=== PATIENT | male | born 1960 | race Caucasian/White ===

== ENCOUNTER 2017-02-20 18:07 | Inpatient (IN) | payer BC ==
[2017-02-20] MEDS ORDERED: Sodium Chloride 0.9% 10 ML Syringe FLUSH PRN (18:48)
[2017-02-20] MEDS ORDERED: HYDROmorphone 0.5 MG/0.5 ML Syringe IVPUSH ONE (18:50)
[2017-02-20] MEDS ORDERED: Sodium Chloride 0.9% 1,000 ML IV ONE ×2 (18:50→21:02)
--- NOTE | 2017-02-20 19:06 | EDM.PDOC ---
ED HPI GENERAL MEDICAL PROBLEM - General Chief Complaint: Abdominal Pain Stated Complaint: ABD PAIN Time Seen by Provider: 02/20/17 18:42 Source of Information: Reports: Patient History Limitations: Reports: No Limitations - History of Present Illness INITIAL COMMENTS - FREE TEXT/NARRATIVE: 57-year-old male presents for evaluation treatment of lower abdominal pain. Patient reports that the pain started last night. He reports the pain is located in his lower abdomen. Improves with laying flat and worsens with movement. He states that it is worse it was a 9 or 10 out of 10. He states the first was a cramping sensation. He states that it is now more constant and is worsening. Patient reports that the pain radiates from his lower abdomen into his penis. He also reports associated symptoms of fatigue, decreased appetite, dysuria, urinary urgency and decreased urinary frequency. He states he's never had anything like this before. He denies fevers, nausea, vomiting, diarrhea, hematuria, back pain, flank pain, melena, hematochezia, testicular pain, testicular swelling or penile discharge. Reports that he did have one bowel movement today. States that it was harder to pass normal. Patient was seen at [facility] today. He had labs, an abdominal x- ray and abdominal CT with IV and oral contrast on. States that his white blood cell count was elevated. Last intake was around 5 PM. No previous surgeries to his abdomen. Has been on antibiotics periodically for an ear infection. Last antibiotic use was about 4 or 5 months ago. He denies any diarrhea, foul-smelling stools or mucus in his stool. Lower Abdomen Pain Score (Numeric/FACES): 8 - Related Data Allergies Allergy/AdvReac Type Severity Reaction Status Date / Time Sulfa (Sulfonamide Allergy Rash Verified 02/20/17 18:21 Antibiotics) Home Meds: Home Meds Lutein/Minerals/Vit A,C & E [Ocuvite] 1 tab PO DAILY 02/20/17 [History] Multivitamin [Multivitamins] 1 tab PO DAILY 02/20/17 [History] cycloSPORINE [Restasis] 1 tab PO DAILY 02/20/17 [History] Past Medical History Other HEENT History: Wears glasses. - Past Surgical History Other HEENT Surgeries/Procedures: Corneal transplant. Other Musculoskeletal Surgeries/Procedures:: Meniscus repair. Social & Family History - Tobacco Use Smoking Status *Q: Former Smoker Years of Tobacco use: 26 Used Tobacco, but Quit: Yes Month Tobacco Last Used: 5 weeks - Caffeine Use Caffeine Use: Reports: Coffee - Alcohol Use Days Per Week of Alcohol Use: 3 Number of Drinks Per Day: 2 Total Drinks Per Week: 6 - Recreational Drug Use Recreational Drug Use: No ED ROS GENERAL - Review of Systems Review Of Systems: See Below Constitutional: Reports: Fatigue, Decreased Appetite. Denies: Fever GI/Abdominal: Reports: Abdominal Pain (lower abdomen). Denies: Constipation, Diarrhea, Hematochezia, Melena, Nausea, Vomiting : Denies: Discharge, Flank Pain, Hematuria ED EXAM, GI/ABD - Physical Exam Exam: See Below Exam Limited By: No Limitations General Appearance: Alert, WD/WN, No Apparent Distress Respiratory/Chest: No Respiratory Distress, Lungs Clear, Normal Breath Sounds Cardiovascular: Normal Peripheral Pulses, Regular Rate, Rhythm, No Murmur GI/Abdominal Exam: Normal Bowel Sounds, Rigid Rectal (Males) Exam: Normal Exam. No: Tenderness (unble to palpate entire prostates no tenderness to the edge of the prostate) Back Exam: Normal Inspection. No: CVA Tenderness (L), CVA Tenderness (R) Neurological: Alert, Oriented, Normal Cognition Psychiatric: Normal Affect, Normal Mood Skin Exam: Warm, Dry, Normal Color Course - Vital Signs Last Recorded V/S: Last Vital Signs Temp 36.9 C 02/20/17 18:16 Pulse 86 02/20/17 18:16 Resp 18 02/20/17 18:16 BP 130/75 02/20/17 18:16 Pulse Ox 96 02/20/17 18:16 - Orders/Labs/Meds Orders: Active Orders 24 hr Category Date Time Status Peripheral IV Care [RC] . DIRECTED Care 02/20/17 18:50 Active CULTURE URINE [RM] Stat Lab 02/20/17 21:05 Ordered Levofloxacin/Dextrose 5%-Water [Levaquin in D5W 250 MG/ Med 02/20/17 21:08 Ordered 50 ML] 250 mg Premix Bag 1 bag IV ONETIME Levofloxacin/Dextrose 5%-Water [Levaquin in D5W 500 MG/ Med 02/20/17 20:32 Active 100 ML] 500 mg Premix Bag 1 bag IV ONETIME Sodium Chloride 0.9% [Normal Saline] 1,000 ml Med 02/20/17 21:02 Ordered IV ONETIME Sodium Chloride 0.9% [Saline Flush] Med 02/20/17 18:48 Active 10 ml FLUSH ASDIRECTED PRN Peripheral IV Insertion Adult [OM.PC] Routine Oth 02/20/17 18:48 Ordered Medication Orders Levofloxacin/Dextrose 500 mg/ (Premix) 100 mls @ 100 mls/hr IV ONETIME ONE Stop: 02/20/17 21:31 Last Admin: 02/20/17 20:40 Dose: 100 mls/hr Sodium Chloride (Normal Saline) 1,000 mls @ 200 mls/hr IV ONETIME ONE Stop: 02/21/17 02:01 Last Admin: 02/20/17 21:06 Dose: 200 mls/hr Levofloxacin/Dextrose 250 mg/ (Premix) 50 mls @ 50 mls/hr IV ONETIME ONE Stop: 02/20/17 22:07 Sodium Chloride (Saline Flush) 10 ml FLUSH ASDIRECTED PRN PRN Reason: Keep Vein Open Last Admin: 02/20/17 19:14 Dose: 10 ml Labs: Laboratory Tests 02/20/17 02/20/17 02/20/17 Range/Units 19:05 19:05 19:05 WBC 23.06 H (4.23-9.07) K/mm3 RBC 4.56 L (4.63-6.08) M/mm3 Hgb 14.5 (13.7-17.5) gm/L Hct 41.8 (40.1-51.0) % MCV 91.7 (79.0-92.2) fl MCH 31.8 (25.7-32.2) pg MCHC 34.7 (32.2-35.5) g/dl RDW Std Deviation 40.6 (35.1-43.9) fL Plt Count 238 (163-337) K/mm3 MPV 10.2 (9.4-12.3) fl Neutrophils % (Manual) 80 H (40-60) % Band Neutrophils % 6 (0-10) % Lymphocytes % (Manual) 12 L (20-40) % Atypical Lymphs % 0 % Monocytes % (Manual) 2 (2-10) % Eosinophils % (Manual) 0 L (0.8-7.0) % Basophils % (Manual) 0 L (0.2-1.2) Toxic Granulation Few Platelet Estimate Adequate Plt Morphology Comment Normal RBC Morph Comment Normal Sodium 138 (136-145) mEq/L Potassium 3.9 (3.5-5.1) mEq/L Chloride 102 (98-107) mEq/L Carbon Dioxide 26 (21-32) mEq/L Anion Gap 13.9 (5-15) BUN 12 (7-18) mg/dL Creatinine 1.0 (0.7-1.3) mg/dL Est Cr Clr Drug Dosing 85.17 mL/min Estimated GFR (MDRD) > 60 (>60) mL/min BUN/Creatinine Ratio 12.0 L (14-18) Glucose 140 H (74-106) mg/dL Calcium 8.7 (8.5-10.1) mg/dL Total Bilirubin 1.6 H (0.2-1.0) mg/dL GGT 21 (15-85) U/L AST 15 (15-37) U/L ALT 33 (16-63) U/L Alkaline Phosphatase 49 (46-116) U/L C-Reactive Protein 7.4 H* (<1.0) mg/dL Total Protein 7.6 (6.4-8.2) g/dl Albumin 3.8 (3.4-5.0) g/dl Globulin 3.8 gm/dL Albumin/Globulin Ratio 1.0 (1-2) Lipase 91 (73-393) U/L Urine Color (Yellow) Urine Appearance (Clear) Urine pH (5.0-8.0) Ur Specific [place] (1.005-1.030) Urine Protein (Negative) Urine Glucose (UA) (Negative) Urine Ketones (Negative) Urine Occult Blood (Negative) Urine Nitrite (Negative) Urine Bilirubin (Negative) Urine Urobilinogen (0.2-1.0) Ur Leukocyte Esterase (Negative) Urine RBC (0-5) /hpf Urine WBC (0-5) /hpf Ur Epithelial Cells (0-5) /hpf Urine Bacteria (FEW) /hpf Urine Mucus (FEW) /hpf 02/20/17 Range/Units 19:05 WBC (4.23-9.07) K/mm3 RBC (4.63-6.08) M/mm3 Hgb (13.7-17.5) gm/L Hct (40.1-51.0) % MCV (79.0-92.2) fl MCH (25.7-32.2) pg MCHC (32.2-35.5) g/dl RDW Std Deviation (35.1-43.9) fL Plt Count (163-337) K/mm3 MPV (9.4-12.3) fl Neutrophils % (Manual) (40-60) % Band Neutrophils % (0-10) % Lymphocytes % (Manual) (20-40) % Atypical Lymphs % % Monocytes % (Manual) (2-10) % Eosinophils % (Manual) (0.8-7.0) % Basophils % (Manual) (0.2-1.2) Toxic Granulation Platelet Estimate Plt Morphology Comment RBC Morph Comment Sodium (136-145) mEq/L Potassium (3.5-5.1) mEq/L Chloride (98-107) mEq/L Carbon Dioxide (21-32) mEq/L Anion Gap (5-15) BUN (7-18) mg/dL Creatinine (0.7-1.3) mg/dL Est Cr Clr Drug Dosing mL/min Estimated GFR (MDRD) (>60) mL/min BUN/Creatinine Ratio (14-18) Glucose (74-106) mg/dL Calcium (8.5-10.1) mg/dL Total Bilirubin (0.2-1.0) mg/dL GGT (15-85) U/L AST (15-37) U/L ALT (16-63) U/L Alkaline Phosphatase (46-116) U/L C-Reactive Protein (<1.0) mg/dL Total Protein (6.4-8.2) g/dl Albumin (3.4-5.0) g/dl Globulin gm/dL Albumin/Globulin Ratio (1-2) Lipase (73-393) U/L Urine Color Light yellow (Yellow) Urine Appearance Clear (Clear) Urine pH 6.0 (5.0-8.0) Ur Specific [place] 1.010 (1.005-1.030) Urine Protein Negative (Negative) Urine Glucose (UA) Negative (Negative) Urine Ketones Negative (Negative) Urine Occult Blood 1+ H (Negative) Urine Nitrite Negative (Negative) Urine Bilirubin Negative (Negative) Urine Urobilinogen 0.2 (0.2-1.0) Ur Leukocyte Esterase Negative (Negative) Urine RBC 0-5 (0-5) /hpf Urine WBC 0-5 (0-5) /hpf Ur Epithelial Cells 0-5 (0-5) /hpf Urine Bacteria Not seen (FEW) /hpf Urine Mucus Not seen (FEW) /hpf Meds: Medications Generic Name Dose Route Start Last Admin Trade Name Getq PRN Reason Stop Dose Admin Levofloxacin/Dextrose 500 mg/ 100 mls @ 100 mls/hr 02/20/17 20:32 02/20/17 20 :40 Premix IV 02/20/17 21:31 100 mls/hr ONETIME ONE Administration Sodium Chloride 1,000 mls @ 200 mls/hr 02/20/17 21:02 02/20/17 21:06 Normal Saline IV 02/21/17 02:01 200 mls/hr ONETIME ONE Administration Levofloxacin/Dextrose 250 mg/ 50 mls @ 50 mls/hr 02/20/17 21:08 Premix IV 02/20/17 22:07 ONETIME ONE Sodium Chloride 10 ml 02/20/17 18:48 02/20/17 19:14 Saline Flush FLUSH 10 ml ASDIRECTED PRN Administration Keep Vein Open Discontinued Medications Generic Name Dose Route Start Last Admin Trade Name Getq PRN Reason Stop Dose Admin Hydromorphone HCl 0.5 mg 02/20/17 18:50 02/20/17 19:14 Dilaudid IVPUSH 02/20/17 18:51 0.5 mg ONETIME ONE Administration Sodium Chloride 1,000 mls @ 999 mls/hr 02/20/17 18:50 02/20/17 19:14 Normal Saline IV 02/20/17 19:50 999 mls/hr ONETIME ONE Administration Ketorolac Tromethamine 30 mg 02/20/17 21:08 02/20/17 21:13 Toradol IVPUSH 02/20/17 21:09 30 mg ONETIME ONE Administration - Re-Assessments/Exams Free Text/Narrative Re-Assessment/Exam: 02/20/17 20:30 Labs obtained from [facility] include the following: UA is negative for leukocytes, nitrites, protein, blood, glucose, ketones and bilirubin. White blood cell count is 19.2, hemoglobin 14.2, hematocrit 41.7 and platelets 227. Sodium is 136, potassium 3.7, chloride 100. Anion gap 13. Glucose 109. Creatinine 0.8, B1 14. AST 21, ALT 31 and alkaline phosphatase 47. Total bilirubin 1.1. CT of the abdomen and pelvis with contrast impression per radiologist at [facility] 8mm nodule right lung base. PET scan could be helpful. Benign cysts in the liver. Study otherwise appears to be negative. Specifically noted a normal appendix. Pancreas appears normal. Kidneys enhance normally. No signs of bowel obstruction. One view abdominal x-ray shows a nonspecific nonobstructive gas bowel pattern mild ileus could not have a similar appearance. No pathologic calcifications. Study otherwise appears to be negative. 02/20/17 20:52 Labs returned White blood cell count 23.06 with 6% bands, hemoglobin 14.5 and platelets are 238. Sodium 138, potassium 3.9 chloride 102. Anion gap 13.9. Glucose 140. Total bilirubin 1.6. AST 15, ALT 33 and GGT 21. Lipase is 91. CRP is 7.4. UA has 1+ blood. Negative nitrites and leuks. Spoke with Dr. Jona Aguirre. Recommended rectal exam to rule out prostatitis. Rectal exam performed. I was unable to palpate the entire prostates but I was able to feel edge. He was not tender with palpation. Spoke with Dr. Rodriguez. She will admit for observation for IV antibiotics and pain medication. Will treat for prostatitis. 02/20/17 21:16 Dr. Jona Aguirre has come and seen the patient. Does not feel he has an acute abdomen. Departure - Departure Time of Disposition: 21:31 Disposition: Refer to Observation Condition: Fair Clinical Impression: Prostatitis - Discharge Information Forms: ED Department Discharge Additional Instructions: Plan admit to observation under Dr. Rodriguez for prostatitis. - My Orders Last 24 Hours: My Active Orders 02/20/17 18:48 Sodium Chloride 0.9% [Saline Flush] 10 ml FLUSH ASDIRECTED PRN Peripheral IV Insertion Adult [OM.PC] Routine 02/20/17 18:50 Peripheral IV Care [RC] . DIRECTED 02/20/17 20:32 Levofloxacin/Dextrose 5%-Water [Levaquin in D5W 500 MG/100 ML] 500 mg Premix Bag 1 bag IV ONETIME 02/20/17 21:02 Sodium Chloride 0.9% [Normal Saline] 1,000 ml IV ONETIME 02/20/17 21:05 CULTURE URINE [RM] Stat 02/20/17 21:08 Levofloxacin/Dextrose 5%-Water [Levaquin in D5W 250 MG/50 ML] 250 mg Premix Bag 1 bag IV ONETIME - Assessment/Plan Last 24 Hours: My Active Orders 02/20/17 18:48 Sodium Chloride 0.9% [Saline Flush] 10 ml FLUSH ASDIRECTED PRN Peripheral IV Insertion Adult [OM.PC] Routine 02/20/17 18:50 Peripheral IV Care [RC] . DIRECTED 02/20/17 20:32 Levofloxacin/Dextrose 5%-Water [Levaquin in D5W 500 MG/100 ML] 500 mg Premix Bag 1 bag IV ONETIME 02/20/17 21:02 Sodium Chloride 0.9% [Normal Saline] 1,000 ml IV ONETIME 02/20/17 21:05 CULTURE URINE [RM] Stat 02/20/17 21:08 Levofloxacin/Dextrose 5%-Water [Levaquin in D5W 250 MG/50 ML] 250 mg Premix Bag 1 bag IV ONETIME
[2017-02-20] MEDS ORDERED: Levofloxacin/Dextrose 5%-Water 500 MG in Premix Bag 1 BAG IV ONE (20:32)
[2017-02-20] MEDS ORDERED: Ketorolac 30 MG/ML SDV IVPUSH ONE (21:08)
[2017-02-20] MEDS ORDERED: Levofloxacin/Dextrose 5%-Water 250 MG in Premix Bag 1 BAG IV ONE (21:08)
[2017-02-20] MEDS ORDERED: Acetaminophen 325 MG Tab PO PRN (22:16)
[2017-02-21] MEDS ORDERED: Ketorolac 30 MG/ML SDV IVPUSH SCH (03:00)
[2017-02-21] MEDS: Ketorolac 30 MG/ML SDV IVPUSH SCH ×4 (03:11→21:39)
--- NOTE | 2017-02-21 08:53 | PCM.HP ---
H&P History of Present Illness - General Date of Service: 02/20/17 Admit Problem/Dx: Admission Diagnosis/Problem Admission Diagnosis/Problem Prostatitis Source of Information: Patient, Family, Provider History Limitations: Reports: No Limitations - History of Present Illness Initial Comments - Free Text/Narative: 57 year old male who has not been seen by a healthcare provider until the day of admission reports abdominal pain. This apparently has severely restricted his activities. He has had pain in the abdomen which on occasion has radiated into his genitalia. He was seen by a Primary Care provider and given a prescription for BPH/Prostatitis. Failed OP therapy because of the severity of his abdominal pain, he will be admitted to observation. CT of the abdomen and pelvis does not suggest a acute/chronic process that would explain the current complainant. He has received Levoquin in the ED, and also Toradol. Onset of Symptoms: Reports: Sudden Symptom Onset Date: 02/20/17 Duration of Symptoms: Reports: Hour(s):, Getting Worse, Waxing/Waning Location: Reports: Abdomen Quality: Reports: Sharp Severity: Moderate Improves with: Reports: Medication Worsens with: Reports: Movement Associated Symptoms: Reports: No Other Symptoms Lower Abdomen Pain Score (Numeric/FACES): 8 - Related Data Allergies/Adverse Reactions: Allergies Allergy/AdvReac Type Severity Reaction Status Date / Time Sulfa (Sulfonamide Allergy Rash Verified 02/20/17 18:21 Antibiotics) Home Medications: Home Meds Lutein/Minerals/Vit A,C & E [Ocuvite] 1 tab PO DAILY 02/20/17 [History] Multivitamin [Multivitamins] 1 tab PO DAILY 02/20/17 [History] cycloSPORINE [Restasis] 1 tab PO DAILY 02/20/17 [History] Past Medical History HEENT History: Reports: Impaired Vision, Other (See Below) Other HEENT History: Wears glasses and/or contacts. has bilateral corneal implants. Genitourinary History: Reports: Other (See Below) Other Genitourinary History: currently admitted 02/20/17 for prostatitis - Past Surgical History Head Surgeries/Procedures: Reports: None HEENT Surgical History: Reports: Other (See Below) Other HEENT Surgeries/Procedures: Corneal transplant. Musculoskeletal Surgical History: Reports: Other (See Below) Other Musculoskeletal Surgeries/Procedures:: Meniscus repair on right. Oncologic Surgical History: Reports: None Social & Family History - Family History Family Medical History: Noncontributory - Tobacco Use Smoking Status *Q: Former Smoker Years of Tobacco use: 29 Packs/Tins Daily: 1 Used Tobacco, but Quit: Yes Month Tobacco Last Used: january 2017 Second Hand Smoke Exposure: No - Caffeine Use Caffeine Use: Reports: Coffee Other Caffeine Use: one pot every day - Alcohol Use Days Per Week of Alcohol Use: 4 Number of Drinks Per Day: 5 Total Drinks Per Week: 20 Date of Last Drink: 02/18/17 - Recreational Drug Use Recreational Drug Use: No H&P Review of Systems - Review of Systems: Review Of Systems: See Below General: Reports: Weakness, Decreased Appetite HEENT: Reports: No Symptoms Pulmonary: Reports: No Symptoms Cardiovascular: Reports: No Symptoms Gastrointestinal: Reports: Abdominal Pain, Decreased Appetite, Flatus Genitourinary: Reports: No Symptoms Musculoskeletal: Reports: No Symptoms Skin: Reports: No Symptoms Psychiatric: Reports: No Symptoms Neurological: Reports: No Symptoms Hematologic/Lymphatic: Reports: No Symptoms Immunologic: Reports: No Symptoms Exam - Exam Exam: See Below - Vital Signs Vital Signs: Last Vital Signs Temp 36.9 C 02/21/17 08:09 Pulse 73 02/21/17 08:09 Resp 12 02/21/17 08:09 BP 124/67 02/21/17 08:09 Pulse Ox 95 02/21/17 08:09 Weight: 76.657 kg - Exam Quality Assessment: DVT Prophylaxis General: Alert, Oriented, Mild Distress HEENT: Conjunctiva Clear, EACs Clear, EOMI, Hearing Intact, Nares Patent, Normal Nasal Septum, Pupils Equal, Pupils Reactive Neck: Supple, Trachea Midline Lungs: Normal Respiratory Effort Cardiovascular: Regular Rate, Regular Rhythm GI/Abdominal Exam: Normal Bowel Sounds, Soft, No Organomegaly, No Distention, No Abnormal Bruit, No Mass, Guarding (no), Rigid (no), Rebound (no), Other ( firm abdominal muscle) (Male) Exam: Deferred, Other (prostate exam performed in the ED) Rectal (Males) Exam: Deferred Back Exam: Normal Inspection Extremities: Normal Inspection, No Pedal Edema Skin: Warm Neurological: Cranial Nerves Intact, Normal Speech Neuro Extensive - Mental Status: Alert, Oriented x3, Normal Mood/Affect, Normal Cognition, Memory Intact - Patient Data Result Diagrams: 02/20/17 19:05 02/20/17 19:05 *Q Meaningful Use (ADM) - VTE *Q VTE Criteria *Q: - Stroke *Q Stroke Criteria *Q: - AMI *Q AMI Criteria *Q: - Problem List (1) Benign prostatic hyperplasia SNOMED Code(s): 139462804, 108074802 ICD Code: N40.0 - BENIGN PROSTATIC HYPERPLASIA WITHOUT LOWER URINRY TRACT SYMP Status: Acute Current Visit: Yes (2) Prostatitis SNOMED Code(s): 4496590 ICD Code: N41.9 - INFLAMMATORY DISEASE OF PROSTATE, UNSPECIFIED Status: Acute Current Visit: Yes Problem List Initiated/Reviewed/Updated: Yes Orders Last 24hrs: Active Orders 24 hr Category Date Time Status Admission Status [Patient Status] [ADT] Routine ADT 02/20/17 22:00 Active Up ad [place] [RC] Care 02/20/17 22:11 Active Heart Healthy Diet [DIET] Diet 02/21/17 Breakfast Active Acetaminophen [Tylenol] Med 02/20/17 22:16 Active 650 mg PO Q4H PRN Ketorolac [Toradol] Med 02/21/17 03:00 Active 30 mg IVPUSH Q6H cycloSPORINE Med 02/21/17 09:00 Ordered 1 tab PO DAILY Code Status [Resuscitation Status] Routine Resus Stat 02/20/17 22:10 Ordered Medication Orders Acetaminophen (Tylenol) 650 mg PO Q4H PRN PRN Reason: fever/pain Ketorolac Tromethamine (Toradol) 30 mg IVPUSH Q6H JENS Stop: 02/22/17 09:01 Last Admin: 02/21/17 03:11 Dose: 30 mg Non-Formulary Medication (Cyclosporine) 1 tab PO DAILY JENS Sodium Chloride (Saline Flush) 10 ml FLUSH ASDIRECTED PRN PRN Reason: Keep Vein Open Last Admin: 02/20/17 19:14 Dose: 10 ml Assessment/Plan Comment:: Impression: Abdominal pain, unspecified BPH Prostatitis Plan: Obs admission IVF Clear Liquids, advance as tolerated IV Levoquin Muscle relaxer IV NSAIDS DVT/GI prophylaxis
[2017-02-21] MEDS ORDERED: Enoxaparin 40 MG/0.4 ML Syringe SUBCUT ONE (08:59)
[2017-02-21] MEDS ORDERED: CYCLOSPORINE PO SCH (09:00)
[2017-02-21] MEDS ORDERED: Lactated Ringers 1,000 ML IV SCH ×2 (09:00→11:00)
[2017-02-21] MEDS: Levofloxacin/Dextrose 5%-Water 750 MG in Premix Bag 1 BAG IV SCH (09:41)
[2017-02-21] MEDS: Tamsulosin 0.4 MG Cap.ER PO SCH ×2 (09:49→18:35)
--- NOTE | 2017-02-21 13:37 | PCM.PN ---
- General Info Date of Service: 02/21/17 Subjective Update: Feeling better wants to try to advance diet, less tenderness. Notes flatus, feels like he has to have a bowel movement. Functional Status: Reports: Pain Controlled (improved), Tolerating Diet (clear liquids), Ambulating, Urinating - Review of Systems General: Reports: No Symptoms HEENT: Reports: No Symptoms Pulmonary: Reports: No Symptoms Cardiovascular: Reports: No Symptoms Gastrointestinal: Reports: Abdominal Pain (decreased) Genitourinary: Reports: No Symptoms Musculoskeletal: Reports: No Symptoms Skin: Reports: No Symptoms Neurological: Reports: No Symptoms - Patient Data Vitals - most recent: Last Vital Signs Temp 36.9 C 02/21/17 08:09 Pulse 76 02/21/17 13:03 Resp 12 02/21/17 13:03 BP 118/66 02/21/17 13:03 Pulse Ox 97 02/21/17 13:03 Weight - most recent: 76.657 kg I&O - last 24 hours: Intake & Output 02/20/17 02/21/17 02/21/17 22:59 06:59 14:59 Intake Total 2500 240 Output Total 1100 Balance 1400 240 Med Orders - Current: Current Medications Acetaminophen (Tylenol) 650 mg PO Q4H PRN PRN Reason: fever/pain Cyclobenzaprine HCl (Flexeril) 10 mg PO TID [facility] Levofloxacin/Dextrose 750 mg/ (Premix) 150 mls @ 100 mls/hr IV Q24H [facility] Last Admin: 02/21/17 09:41 Dose: 100 mls/hr Lactated Ringer's (Ringers, Lactated) 1,000 mls @ 200 mls/hr IV ASDIRECTED [facility] Stop: 02/21/17 17:00 Ketorolac Tromethamine (Toradol) 30 mg IVPUSH Q6H [facility] Stop: 02/22/17 09:01 Last Admin: 02/21/17 09:49 Dose: 30 mg Non-Formulary Medication (Cyclosporine) 1 tab PO DAILY [facility] Tamsulosin HCl (Flomax) 0.4 mg PO BIDPC [facility] Last Admin: 02/21/17 09:49 Dose: 0.4 mg Discontinued Medications Enoxaparin Sodium (Lovenox) 40 mg SUBCUT DAILY ONE Stop: 02/21/17 09:00 Last Admin: 02/21/17 09:47 Dose: 40 mg Hydromorphone HCl (Dilaudid) 0.5 mg IVPUSH ONETIME ONE Stop: 02/20/17 18:51 Last Admin: 02/20/17 19:14 Dose: 0.5 mg Sodium Chloride (Normal Saline) 1,000 mls @ 999 mls/hr IV ONETIME ONE Stop: 02/20/17 19:50 Last Admin: 02/20/17 19:14 Dose: 999 mls/hr Levofloxacin/Dextrose 500 mg/ (Premix) 100 mls @ 100 mls/hr IV ONETIME ONE Stop: 02/20/17 21:31 Last Admin: 02/20/17 20:40 Dose: 100 mls/hr Sodium Chloride (Normal Saline) 1,000 mls @ 200 mls/hr IV ONETIME ONE Stop: 02/21/17 02:01 Last Admin: 02/20/17 21:06 Dose: 200 mls/hr Levofloxacin/Dextrose 250 mg/ (Premix) 50 mls @ 50 mls/hr IV ONETIME ONE Stop: 02/20/17 22:07 Last Admin: 02/20/17 21:38 Dose: 50 mls/hr Lactated Ringer's (Ringers, Lactated) 1,000 mls @ 999 mls/hr IV ASDIRECTED [facility] Stop: 02/21/17 11:00 Ketorolac Tromethamine (Toradol) 30 mg IVPUSH ONETIME ONE Stop: 02/20/17 21:09 Last Admin: 02/20/17 21:13 Dose: 30 mg Ketorolac Tromethamine (Toradol) 30 mg IVPUSH Q6H [facility] Stop: 02/24/17 03:01 Sodium Chloride (Saline Flush) 10 ml FLUSH ASDIRECTED PRN PRN Reason: Keep Vein Open Last Admin: 02/20/17 19:14 Dose: 10 ml - Exam Quality Assessment: DVT prophylaxis General: alert, oriented, cooperative, no acute distress HEENT: Pupils equal, Pupils reactive, EOMI, Mucous membr. moist/pink Neck: supple, trachea midline, no JVD Lungs: Normal Respiratory Effort Cardiovascular: Regular Rate, Regular Rhythm GI/Abdominal Exam: Normal Bowel Sounds, Soft, Non-Tender (minimal tenderness), No Organomegaly, No Distention (Male) Exam: Deferred Back Exam: Normal Inspection Extremities: Normal Inspection, No Pedal Edema Skin: warm Neurological: no new focal deficit, normal gait, normal speech Psy/Mental Status: alert, normal affect, normal mood - Problem List & Annotations (1) Benign prostatic hyperplasia SNOMED Code(s): 777628472, 516945925 Code(s): N40.0 - BENIGN PROSTATIC HYPERPLASIA WITHOUT LOWER URINRY TRACT SYMP Status: Acute Current Visit: Yes (2) Prostatitis SNOMED Code(s): 3284588 Code(s): N41.9 - INFLAMMATORY DISEASE OF PROSTATE, UNSPECIFIED Status: Acute Current Visit: Yes (3) Abdominal pain SNOMED Code(s): 54851290 Code(s): R10.9 - UNSPECIFIED ABDOMINAL PAIN Status: Acute Current Visit: Yes Qualifiers: Abdominal location: lower abdomen, unspecified Qualified Code(s): R10.30 - Lower abdominal pain, unspecified - Problem List Review Problem List Initiated/Reviewed/Updated: Yes - My Orders Last 24 Hours: My Active Orders 02/20/17 22:10 Code Status [Resuscitation Status] Routine 02/20/17 22:11 Up ad [place] [RC] 02/20/17 22:16 Acetaminophen [Tylenol] 650 mg PO Q4H PRN 02/21/17 03:00 Ketorolac [Toradol] 30 mg IVPUSH Q6H 02/21/17 08:54 Antiembolic Devices [RC] PER UNIT ROUTINE [facility] Hose [Antiembolic Hose] [OM.PC] Routine 02/21/17 08:58 CIWAA Assessment [RC] ASDIRECTED 02/21/17 09:00 Levofloxacin/Dextrose 5%-Water [Levaquin in D5W 750 MG/150 ML] 750 mg Premix Bag 1 bag IV Q24H Tamsulosin [Flomax] 0.4 mg PO BIDPC cycloSPORINE 1 tab PO DAILY 02/21/17 11:00 Lactated Ringers [Ringers, Lactated] 1,000 ml IV ASDIRECTED 02/21/17 14:00 BMP [BASIC METABOLIC PANEL,BMP] [CHEM] Routine CBC WITH AUTO DIFF [HEME] Routine CRP [C-REACTIVE PROTEIN] [CHEM] Routine LACTIC ACID [CHEM] Routine MAGNESIUM [CHEM] Routine 02/21/17 15:00 Cyclobenzaprine [Flexeril] 10 mg PO TID 02/21/17 Breakfast Heart Healthy Diet [DIET] - Plan Plan:: Impression: Abdominal pain, unspecified BPH, responding well to Flomax Query Prostatitis Leukocytosis Plan: IVF Clear Liquids, advance as tolerated IV Levoquin Muscle relaxer General surg consult as needed IV NSAIDS DVT/GI prophylaxis
[2017-02-21] MEDS ORDERED: Temazepam 7.5 MG Cap PO PRN (14:51)
[2017-02-21] MEDS: Cyclobenzaprine 10 MG Tab PO SCH ×2 (15:43→21:39)
[2017-02-21] MEDS: RESTASIS 0.05% EYEBOTH SCH (21:31)
[2017-02-21] MEDS: EYE EYEBOTH SCH (21:31)
[2017-02-22] MEDS: Ketorolac 30 MG/ML SDV IVPUSH SCH ×2 (04:51→12:32)
[2017-02-22] MEDS: Tamsulosin 0.4 MG Cap.ER PO SCH (08:20)
[2017-02-22] MEDS: Levofloxacin/Dextrose 5%-Water 750 MG in Premix Bag 1 BAG IV SCH (08:21)
[2017-02-22] MEDS: RESTASIS 0.05% EYEBOTH SCH (08:21)
[2017-02-22] MEDS: EYE EYEBOTH SCH (08:21)
[2017-02-22] MEDS ORDERED: Magnesium Sulfate/Water 2 GM in Premix Bag 1 BAG IV ONE (08:49)
[2017-02-22] MEDS: Cyclobenzaprine 10 MG Tab PO SCH ×2 (12:32→14:43)
[2017-02-22 12:37] VITALS: BP 130/72
[2017-02-22] MEDS ORDERED: metroNIDAZOLE/Normal Saline 500 MG in Premix Bag 1 BAG IV SCH (13:30)
[2017-02-22] MEDS ORDERED: Sodium Chloride 0.45% 1,000 ML IV SCH (13:30)
[2017-02-22] MEDS ORDERED: Ketorolac 30 MG/ML SDV IVPUSH PRN (15:28)
[2017-02-22] MEDS: Piperacillin/Tazobactam 4.5 GM in Sodium Chloride 0.9% 100 ML IV ONE ×2 (15:38→18:30)
[2017-02-22] MEDS ORDERED: Piperacillin/Tazobactam 4.5 GM in Sodium Chloride 0.9% 100 ML IV ONE (16:00)
[2017-02-22] MEDS ORDERED: Diatrizoate Meglumine/Diatrizoate Sodium 37% 120 ML Bottle PO ONE (16:12)
[2017-02-22] MEDS ORDERED: Sodium Chloride 0.9% 10 ML Syringe FLUSH ONE (16:12)
[2017-02-22] MEDS ORDERED: Iopamidol 612 MG/ML 150 ML Bottle IVPUSH ONE (16:12)
[2017-02-22] MEDS ORDERED: Benzocaine 20% Oral Spray 59.2 ML Canister MUCMEM ONE (17:54)
--- NOTE | 2017-02-22 18:30 | PCM.CONSN ---
- General Info Date of Service: 02/22/17 - Patient Data Vitals - most recent: Last Vital Signs Temp 101.5 F H 02/22/17 12:33 Pulse 92 02/22/17 12:33 Resp 14 02/22/17 12:33 BP 130/72 02/22/17 12:33 Pulse Ox 94 L 02/22/17 12:33 Weight - most recent: 76.884 kg I&O - last 24 hours: Intake & Output 02/22/17 02/22/17 02/22/17 07:59 15:59 23:59 Intake Total 1723 Output Total 2200 Balance -477 Lab Results last 24 hrs: Laboratory Results - last 24 hr 02/22/17 02/22/17 Range/Units 13:10 17:12 Lactic Acid 0.5 (0.4-2.0) mmol/L Urine Color Yellow (Yellow) Urine Appearance Clear (Clear) Urine pH 6.0 (5.0-8.0) Ur Specific [place] 1.025 (1.005-1.030) Urine Protein Negative (Negative) Urine Glucose (UA) Negative (Negative) Urine Ketones Negative (Negative) Urine Occult Blood 1+ H (Negative) Urine Nitrite Negative (Negative) Urine Bilirubin Negative (Negative) Urine Urobilinogen 0.2 (0.2-1.0) Ur Leukocyte Esterase Negative (Negative) Urine RBC Not seen (0-5) /hpf Urine WBC 0-5 (0-5) /hpf Ur Epithelial Cells 0-5 (0-5) /hpf Urine Bacteria Not seen (FEW) /hpf Urine Mucus Not seen (FEW) /hpf Med Orders - Current: Current Medications Acetaminophen (Tylenol) 650 mg PO Q4H PRN PRN Reason: fever/pain Cyclobenzaprine HCl (Flexeril) 10 mg PO TID [facility] Last Admin: 02/22/17 14:43 Dose: 10 mg Levofloxacin/Dextrose 750 mg/ (Premix) 150 mls @ 100 mls/hr IV Q24H [facility] Last Admin: 02/22/17 08:21 Dose: 100 mls/hr Metronidazole 500 mg/ Premix 100 mls @ 100 mls/hr IV Q8H [facility] Last Admin: 02/22/17 13:45 Dose: 100 mls/hr Sodium Chloride (Sodium Chloride 0.45%) 1,000 mls @ 75 mls/hr IV ASDIRECTED [facility] Last Admin: 02/22/17 13:46 Dose: 75 mls/hr Piperacillin Sod/Tazobactam (Sod 4.5 gm/ Sodium Chloride) 100 mls @ 33.333 mls/ hr IV Q8H [facility] Ketorolac Tromethamine (Toradol) 30 mg IVPUSH Q6H PRN PRN Reason: Pain Last Admin: 02/22/17 15:41 Dose: 30 mg Restasis 0.05% Eye (DropsOwn Med) 0 each EYEBOTH BID [facility] Last Admin: 02/22/17 08:21 Dose: 1 each [facility] Last Admin: 02/22/17 08:20 Dose: 0.4 mg Temazepam (Restoril) 7.5 mg PO BEDTIME PRN PRN Reason: Insomnia Discontinued Medications Benzocaine (Hurricaine 20% [place]) 1 ml MUCMEM ONETIME ONE Stop: 02/22/17 17:55 Last Admin: 02/22/17 18:08 Dose: 1 dose Diatrizoate Meglum/Diatrizoate Sod (Gastrografin 37%) 90 ml PO ONETIME ONE Stop: 02/22/17 16:13 Last Admin: 02/22/17 16:36 Dose: 90 ml Enoxaparin Sodium (Lovenox) 40 mg SUBCUT DAILY ONE Stop: 02/21/17 09:00 Last Admin: 02/21/17 09:47 Dose: 40 mg Hydromorphone HCl (Dilaudid) 0.5 mg IVPUSH ONETIME ONE Stop: 02/20/17 18:51 Last Admin: 02/20/17 19:14 Dose: 0.5 mg Sodium Chloride (Normal Saline) 1,000 mls @ 999 mls/hr IV ONETIME ONE Stop: 02/20/17 19:50 Last Admin: 02/20/17 19:14 Dose: 999 mls/hr Levofloxacin/Dextrose 500 mg/ (Premix) 100 mls @ 100 mls/hr IV ONETIME ONE Stop: 02/20/17 21:31 Last Admin: 02/20/17 20:40 Dose: 100 mls/hr Sodium Chloride (Normal Saline) 1,000 mls @ 200 mls/hr IV ONETIME ONE Stop: 02/21/17 02:01 Last Admin: 02/20/17 21:06 Dose: 200 mls/hr Levofloxacin/Dextrose 250 mg/ (Premix) 50 mls @ 50 mls/hr IV ONETIME ONE Stop: 02/20/17 22:07 Last Admin: 02/20/17 21:38 Dose: 50 mls/hr Lactated Ringer's (Ringers, Lactated) 1,000 mls @ 999 mls/hr IV ASDIRECTED [facility] Stop: 02/21/17 11:00 Lactated Ringer's (Ringers, Lactated) 1,000 mls @ 200 mls/hr IV ASDIRECTED [facility] Stop: 02/21/17 17:00 Magnesium Sulfate 2 gm/ Premix 50 mls @ 25 mls/hr IV ONETIME ONE Stop: 02/22/17 10:48 Last Admin: 02/22/17 11:11 Dose: 25 mls/hr Piperacillin Sod/Tazobactam (Sod 4.5 gm/ Sodium Chloride) 100 mls @ 33.333 mls/ hr IV Q6H [facility] Piperacillin Sod/Tazobactam (Sod 4.5 gm/ Sodium Chloride) 100 mls @ 200 mls/hr IV ONETIME ONE Stop: 02/22/17 14:29 Piperacillin Sod/Tazobactam (Sod 4.5 gm/ Sodium Chloride) 100 mls @ 200 mls/hr IV ONETIME ONE Stop: 02/22/17 16:29 Last Admin: 02/22/17 15:38 Dose: 200 mls/hr Iopamidol (Isovue-300 (61%)) 125 ml IVPUSH ONETIME ONE Stop: 02/22/17 16:13 Last Admin: 02/22/17 16:36 Dose: 125 ml Ketorolac Tromethamine (Toradol) 30 mg IVPUSH ONETIME ONE Stop: 02/20/17 21:09 Last Admin: 02/20/17 21:13 Dose: 30 mg Ketorolac Tromethamine (Toradol) 30 mg IVPUSH Q6H [facility] Stop: 02/24/17 03:01 Ketorolac Tromethamine (Toradol) 30 mg IVPUSH Q6H [facility] Stop: 02/22/17 09:01 Last Admin: 02/22/17 12:32 Dose: Not Given Non-Formulary Medication (Cyclosporine) 1 tab PO DAILY [facility] Last Admin: 02/22/17 03:25 Dose: Not Given Sodium Chloride (Saline Flush) 10 ml FLUSH ASDIRECTED PRN PRN Reason: Keep Vein Open Last Admin: 02/20/17 19:14 Dose: 10 ml Sodium Chloride (Saline Flush) 10 ml FLUSH ONETIME ONE Stop: 02/22/17 16:13 Last Admin: 02/22/17 16:36 Dose: 10 ml Consult PN Assessment/Plan Procedures: Procedures CULTR BACTERIA EXCEPT BLOOD (04/01/16) EMERGENCY DEPT VISIT (12/22/14) IMMUNIZATION ADMIN (12/22/14) RPR S/N/AX/GEN/TRK7.6-12.5CM (12/22/14) SMEAR GRAM STAIN (04/01/16) TDAP VACCINE 7 YRS/> IM (12/22/14) Problem List Initiated/Reviewed/Updated: Yes My Orders last 24 hours: surgical consutl dictated MEGHANN
--- NOTE | 2017-02-22 18:50 | PCM.PN ---
- General Info Date of Service: 02/22/17 Subjective Update: Feels better but has less of an appetite this morning. Denies N/V; passing urine without difficulty. States that his normal stool habits includes very soft stool, five times before 1000 am. Decreased pain is noted by patient , feels like he can move around more easily without discomfort. Functional Status: Reports: Pain Controlled (change anlagesics to prn), Tolerating Diet (decreased intake ), Ambulating, Urinating - Review of Systems General: Reports: No Symptoms HEENT: Reports: No Symptoms Pulmonary: Reports: No Symptoms Cardiovascular: Reports: No Symptoms Gastrointestinal: Reports: Abdominal Pain (decreased), Other (passed stool twice today) Genitourinary: Reports: No Symptoms Musculoskeletal: Reports: No Symptoms Skin: Reports: No Symptoms Neurological: Reports: No Symptoms Psychiatric: Reports: No Symptoms - Patient Data Vitals - most recent: Last Vital Signs Temp 38.6 C H 02/22/17 12:33 Pulse 92 02/22/17 12:33 Resp 14 02/22/17 12:33 BP 130/72 02/22/17 12:33 Pulse Ox 94 L 02/22/17 12:33 Weight - most recent: 76.657 kg I&O - last 24 hours: Intake & Output 02/22/17 02/22/17 02/22/17 06:59 14:59 22:59 Intake Total 1723 Output Total 2200 Balance -477 Lab Results last 24 hrs: Laboratory Results - last 24 hr 02/22/17 02/22/17 Range/Units 13:10 17:12 Lactic Acid 0.5 (0.4-2.0) mmol/L Urine Color Yellow (Yellow) Urine Appearance Clear (Clear) Urine pH 6.0 (5.0-8.0) Ur Specific [place] 1.025 (1.005-1.030) Urine Protein Negative (Negative) Urine Glucose (UA) Negative (Negative) Urine Ketones Negative (Negative) Urine Occult Blood 1+ H (Negative) Urine Nitrite Negative (Negative) Urine Bilirubin Negative (Negative) Urine Urobilinogen 0.2 (0.2-1.0) Ur Leukocyte Esterase Negative (Negative) Urine RBC Not seen (0-5) /hpf Urine WBC 0-5 (0-5) /hpf Ur Epithelial Cells 0-5 (0-5) /hpf Urine Bacteria Not seen (FEW) /hpf Urine Mucus Not seen (FEW) /hpf Med Orders - Current: Current Medications Acetaminophen (Tylenol) 650 mg PO Q4H PRN PRN Reason: fever/pain Cyclobenzaprine HCl (Flexeril) 10 mg PO TID [facility] Last Admin: 02/22/17 14:43 Dose: 10 mg Levofloxacin/Dextrose 750 mg/ (Premix) 150 mls @ 100 mls/hr IV Q24H [facility] Last Admin: 02/22/17 08:21 Dose: 100 mls/hr Metronidazole 500 mg/ Premix 100 mls @ 100 mls/hr IV Q8H [facility] Last Admin: 02/22/17 13:45 Dose: 100 mls/hr Sodium Chloride (Sodium Chloride 0.45%) 1,000 mls @ 75 mls/hr IV ASDIRECTED [facility] Last Admin: 02/22/17 13:46 Dose: 75 mls/hr Piperacillin Sod/Tazobactam (Sod 4.5 gm/ Sodium Chloride) 100 mls @ 33.333 mls/ hr IV Q8H [facility] Ketorolac Tromethamine (Toradol) 30 mg IVPUSH Q6H PRN PRN Reason: Pain Last Admin: 02/22/17 15:41 Dose: 30 mg Restasis 0.05% Eye (DropsOwn Med) 0 each EYEBOTH BID [facility] Last Admin: 02/22/17 08:21 Dose: 1 each [facility] Last Admin: 02/22/17 08:20 Dose: 0.4 mg Temazepam (Restoril) 7.5 mg PO BEDTIME PRN PRN Reason: Insomnia Discontinued Medications Benzocaine (Hurricaine 20% [place]) 1 ml MUCMEM ONETIME ONE Stop: 02/22/17 17:55 Last Admin: 02/22/17 18:08 Dose: 1 dose Diatrizoate Meglum/Diatrizoate Sod (Gastrografin 37%) 90 ml PO ONETIME ONE Stop: 02/22/17 16:13 Last Admin: 02/22/17 16:36 Dose: 90 ml Enoxaparin Sodium (Lovenox) 40 mg SUBCUT DAILY ONE Stop: 02/21/17 09:00 Last Admin: 02/21/17 09:47 Dose: 40 mg Hydromorphone HCl (Dilaudid) 0.5 mg IVPUSH ONETIME ONE Stop: 02/20/17 18:51 Last Admin: 02/20/17 19:14 Dose: 0.5 mg Sodium Chloride (Normal Saline) 1,000 mls @ 999 mls/hr IV ONETIME ONE Stop: 02/20/17 19:50 Last Admin: 02/20/17 19:14 Dose: 999 mls/hr Levofloxacin/Dextrose 500 mg/ (Premix) 100 mls @ 100 mls/hr IV ONETIME ONE Stop: 02/20/17 21:31 Last Admin: 02/20/17 20:40 Dose: 100 mls/hr Sodium Chloride (Normal Saline) 1,000 mls @ 200 mls/hr IV ONETIME ONE Stop: 02/21/17 02:01 Last Admin: 02/20/17 21:06 Dose: 200 mls/hr Levofloxacin/Dextrose 250 mg/ (Premix) 50 mls @ 50 mls/hr IV ONETIME ONE Stop: 02/20/17 22:07 Last Admin: 02/20/17 21:38 Dose: 50 mls/hr Lactated Ringer's (Ringers, Lactated) 1,000 mls @ 999 mls/hr IV ASDIRECTED [facility] Stop: 02/21/17 11:00 Lactated Ringer's (Ringers, Lactated) 1,000 mls @ 200 mls/hr IV ASDIRECTED [facility] Stop: 02/21/17 17:00 Magnesium Sulfate 2 gm/ Premix 50 mls @ 25 mls/hr IV ONETIME ONE Stop: 02/22/17 10:48 Last Admin: 02/22/17 11:11 Dose: 25 mls/hr Piperacillin Sod/Tazobactam (Sod 4.5 gm/ Sodium Chloride) 100 mls @ 33.333 mls/ hr IV Q6H [facility] Piperacillin Sod/Tazobactam (Sod 4.5 gm/ Sodium Chloride) 100 mls @ 200 mls/hr IV ONETIME ONE Stop: 02/22/17 14:29 Last Admin: 02/22/17 18:30 Dose: Not Given Piperacillin Sod/Tazobactam (Sod 4.5 gm/ Sodium Chloride) 100 mls @ 200 mls/hr IV ONETIME ONE Stop: 02/22/17 16:29 Last Admin: 02/22/17 15:38 Dose: 200 mls/hr Iopamidol (Isovue-300 (61%)) 125 ml IVPUSH ONETIME ONE Stop: 02/22/17 16:13 Last Admin: 02/22/17 16:36 Dose: 125 ml Ketorolac Tromethamine (Toradol) 30 mg IVPUSH ONETIME ONE Stop: 02/20/17 21:09 Last Admin: 02/20/17 21:13 Dose: 30 mg Ketorolac Tromethamine (Toradol) 30 mg IVPUSH Q6H [facility] Stop: 02/24/17 03:01 Ketorolac Tromethamine (Toradol) 30 mg IVPUSH Q6H [facility] Stop: 02/22/17 09:01 Last Admin: 02/22/17 12:32 Dose: Not Given Non-Formulary Medication (Cyclosporine) 1 tab PO DAILY [facility] Last Admin: 02/22/17 03:25 Dose: Not Given Sodium Chloride (Saline Flush) 10 ml FLUSH ASDIRECTED PRN PRN Reason: Keep Vein Open Last Admin: 02/20/17 19:14 Dose: 10 ml Sodium Chloride (Saline Flush) 10 ml FLUSH ONETIME ONE Stop: 02/22/17 16:13 Last Admin: 02/22/17 16:36 Dose: 10 ml - Exam Quality Assessment: DVT prophylaxis General: alert, oriented, cooperative, no acute distress HEENT: Pupils equal, Pupils reactive, EOMI, Mucous membr. moist/pink Neck: supple, trachea midline Lungs: Normal Respiratory Effort Cardiovascular: Regular Rate, Regular Rhythm GI/Abdominal Exam: Normal Bowel Sounds, Soft, Non-Tender, No Organomegaly, No Distention (Male) Exam: Deferred Back Exam: Normal Inspection Extremities: Normal Inspection, Normal Range of Motion, No Pedal Edema Skin: warm Neurological: no new focal deficit, normal gait, normal speech Psy/Mental Status: alert, normal affect, normal mood - Problem List & Annotations (1) Benign prostatic hyperplasia SNOMED Code(s): 636772690, 596870937 Code(s): N40.0 - BENIGN PROSTATIC HYPERPLASIA WITHOUT LOWER URINRY TRACT SYMP Status: Acute Current Visit: Yes (2) Prostatitis SNOMED Code(s): 5142290 Code(s): N41.9 - INFLAMMATORY DISEASE OF PROSTATE, UNSPECIFIED Status: Acute Current Visit: Yes (3) Abdominal pain SNOMED Code(s): 54532172 Code(s): R10.9 - UNSPECIFIED ABDOMINAL PAIN Status: Acute Current Visit: Yes Qualifiers: Abdominal location: lower abdomen, unspecified Qualified Code(s): R10.30 - Lower abdominal pain, unspecified - Problem List Review Problem List Initiated/Reviewed/Updated: Yes - My Orders Last 24 Hours: My Active Orders 02/22/17 12:45 Blood Culture x2 Reflex Set [OM.PC] Stat 02/22/17 13:10 CULTURE URINE [RM] Routine 02/22/17 13:11 CULTURE BLOOD [BC] Stat 02/22/17 13:21 CULTURE STOOL + SHIGATOX [RM] Routine 02/22/17 13:26 CULTURE BLOOD [BC] Stat 02/22/17 13:30 Sodium Chloride 0.45% 1,000 ml IV ASDIRECTED metroNIDAZOLE/Normal Saline [Flagyl 500 MG in NS 100 ML] 500 mg Premix Bag 1 bag IV Q8H 02/22/17 14:41 Chest Abdomen Pelvis w wo Cont [CT] Routine 02/22/17 15:28 Ketorolac [Toradol] 30 mg IVPUSH Q6H PRN 02/22/17 17:54 Nasogastric Orogastric Tube Insertion [OM.PC] Routine 02/23/17 00:00 Piperacillin/Tazobactam [Zosyn] 4.5 gm Sodium Chloride 0.9% [Normal Saline] 100 ml IV Q8H - Plan Plan:: Impression: Abdominal pain, unspecified BPH, responding well to Flomax Query Prostatitis Leukocytosis, mildly improved Plan: IVF Clear Liquids, advance as tolerated IV Levoquin Muscle relaxer General surg consult as needed IV NSAIDS DVT/GI prophylaxis
--- NOTE | 2017-02-22 19:18 | PCM.SN ---
- Free Text/Narrative Note: Will repeat CT of abd/pelvis and add thorax for complete assessment; previous film at [facility] was unremarkable except a lung nodule. Patient has spiked a temperature >102F; bowel sounds are now hyperactive after contrast. Patient had been started on Levoquin on admission, have added Flagyl and Zosyn. IVF restarted, avoiding LR because it is incompatible with Zosyn. Have notified Dr Franco, Gen Surg corporate communications manager of patient's change in status, more uncomfortable and BS changes. Also that CT of abdomen and pelvis in particular has been performed. Patient has bowel obstruction mentioned in rad report; reviewed images with Dr Franco. He has called [facility] and spoken to Dr Sean Owens who will accept the patient. Patient has had an NGT placed, approximately 500 cc of eve colored fluid.
[2017-02-22] MEDS ORDERED: Piperacillin/Tazobactam 4.5 GM in Sodium Chloride 0.9% 100 ML IV SCH (20:00)
--- NOTE | 2017-02-22 20:14 | PCM.DCSUM1 ---
[id number] until 02/20[facility]17 when he developed abdominal pain that radiated to his groin. After lab work as well as a CT of the abdomen/ pelvis, he began cipro for prostatitis. This offered minimal relief. In the ED , no acute process was identified, the prostate exam was suggestive of prostatitis; he was admitted for possible prostatitis. He began to improve, responding to the therapy, but the pain became more pronounced and a repeat CT of the abdomen and pelvis was performed. This repeat scan was compared to the previous study, a change was noted with a small bowel obstruction. The ascending colon was dilated to the hepatic flexure; this was also the location of a transition zone. A mass or an obstruction could not be excluded. Prior to the study, the patient was placed on Zosyn and Flagyl when he spiked a fever. An NGT was placed with return of ~300cc of bile colored fluid. The general surgeon who was consulted called [facility] and spoke to surgeon, Dr Gonzalo Owens who has accepted the patient. Primary Dx Prostatitis Small Bowel Obstruction Consults General Surgery Meds Please see list Diet NPO with NGT in place. - Discharge Data Discharge Date: 02/22/17 Discharge Disposition: DC/Tfer to Acute Hospital 02 Condition: Fair - Discharge Diagnosis/Problem(s) (1) Benign prostatic hyperplasia SNOMED Code(s): 161411094, 941366514 ICD Code: N40.0 - BENIGN PROSTATIC HYPERPLASIA WITHOUT LOWER URINRY TRACT SYMP Status: Acute (2) Prostatitis SNOMED Code(s): 1432814 ICD Code: N41.9 - INFLAMMATORY DISEASE OF PROSTATE, UNSPECIFIED Status: Acute (3) Abdominal pain SNOMED Code(s): 19203894 ICD Code: R10.9 - UNSPECIFIED ABDOMINAL PAIN Status: Acute Qualifiers: Abdominal location: lower abdomen, unspecified Qualified Code(s): R10.30 - Lower abdominal pain, unspecified - Patient Instructions Diet: NPO Activity: Bedrest Driving: Do Not Drive Showering/Bathing: No Showering Notify Provider of: Increased Pain - Discharge Plan Home Medications: Home Meds Lutein/Minerals/Vit A,C & E [Ocuvite] 1 tab PO DAILY 02/20/17 [History] Multivitamin [Multivitamins] 1 tab PO DAILY 02/20/17 [History] cycloSPORINE [Restasis] 1 tab PO DAILY 02/20/17 [History] Forms: ED Department Discharge Referrals: PCP,None [Primary Care Provider] - - Discharge Summary/Plan Comment DC Time >30 min.: No - General Info Date of Service: 02/20/17 Functional Status: Reports: Urinating - Review of Systems General: Reports: Weakness HEENT: Reports: No Symptoms Pulmonary: Reports: No Symptoms Cardiovascular: Reports: No Symptoms Gastrointestinal: Reports: Abdominal Pain, Flatus Genitourinary: Reports: No Symptoms Musculoskeletal: Reports: No Symptoms Skin: Reports: No Symptoms Neurological: Reports: No Symptoms Psychiatric: Reports: No Symptoms - Patient Data Vitals - Most Recent: Last Vital Signs Temp 38.6 C H 02/22/17 12:33 Pulse 92 02/22/17 12:33 Resp 14 02/22/17 12:33 BP 130/72 02/22/17 12:33 Pulse Ox 94 L 02/22/17 12:33 Weight - Most Recent: 76.657 kg I&O - Last 24 hours: Intake & Output 02/22/17 02/22/17 02/22/17 06:59 14:59 22:59 Intake Total 2373 Output Total 2200 Balance 173 Lab Results - Last 24 hrs: Laboratory Results - last 24 hr 02/22/17 02/22/17 Range/Units 13:10 17:12 Lactic Acid 0.5 (0.4-2.0) mmol/L Urine Color Yellow (Yellow) Urine Appearance Clear (Clear) Urine pH 6.0 (5.0-8.0) Ur Specific [place] 1.025 (1.005-1.030) Urine Protein Negative (Negative) Urine Glucose (UA) Negative (Negative) Urine Ketones Negative (Negative) Urine Occult Blood 1+ H (Negative) Urine Nitrite Negative (Negative) Urine Bilirubin Negative (Negative) Urine Urobilinogen 0.2 (0.2-1.0) Ur Leukocyte Esterase Negative (Negative) Urine RBC Not seen (0-5) /hpf Urine WBC 0-5 (0-5) /hpf Ur Epithelial Cells 0-5 (0-5) /hpf Urine Bacteria Not seen (FEW) /hpf Urine Mucus Not seen (FEW) /hpf Med Orders - Current: Current Medications Discontinued Medications Acetaminophen (Tylenol) 650 mg PO Q4H PRN PRN Reason: fever/pain Benzocaine (Hurricaine 20% Spencer) 1 ml MUCMEM ONETIME ONE Stop: 02/22/17 17:55 Last Admin: 02/22/17 18:08 Dose: 1 dose Cyclobenzaprine HCl (Flexeril) 10 mg PO TID [facility] Last Admin: 02/22/17 14:43 Dose: 10 mg Diatrizoate Meglum/Diatrizoate Sod (Gastrografin 37%) 90 ml PO ONETIME ONE Stop: 02/22/17 16:13 Last Admin: 02/22/17 16:36 Dose: 90 ml Enoxaparin Sodium (Lovenox) 40 mg SUBCUT DAILY ONE Stop: 02/21/17 09:00 Last Admin: 02/21/17 09:47 Dose: 40 mg Hydromorphone HCl (Dilaudid) 0.5 mg IVPUSH ONETIME ONE Stop: 02/20/17 18:51 Last Admin: 02/20/17 19:14 Dose: 0.5 mg Sodium Chloride (Normal Saline) 1,000 mls @ 999 mls/hr IV ONETIME ONE Stop: 02/20/17 19:50 Last Admin: 02/20/17 19:14 Dose: 999 mls/hr Levofloxacin/Dextrose 500 mg/ (Premix) 100 mls @ 100 mls/hr IV ONETIME ONE Stop: 02/20/17 21:31 Last Admin: 02/20/17 20:40 Dose: 100 mls/hr Sodium Chloride (Normal Saline) 1,000 mls @ 200 mls/hr IV ONETIME ONE Stop: 02/21/17 02:01 Last Admin: 02/20/17 21:06 Dose: 200 mls/hr Levofloxacin/Dextrose 250 mg/ (Premix) 50 mls @ 50 mls/hr IV ONETIME ONE Stop: 02/20/17 22:07 Last Admin: 02/20/17 21:38 Dose: 50 mls/hr Lactated Ringer's (Ringers, Lactated) 1,000 mls @ 999 mls/hr IV ASDIRECTED [facility] Stop: 02/21/17 11:00 Levofloxacin/Dextrose 750 mg/ (Premix) 150 mls @ 100 mls/hr IV Q24H [facility] Last Admin: 02/22/17 08:21 Dose: 100 mls/hr Lactated Ringer's (Ringers, Lactated) 1,000 mls @ 200 mls/hr IV ASDIRECTED [facility] Stop: 02/21/17 17:00 Magnesium Sulfate 2 gm/ Premix 50 mls @ 25 mls/hr IV ONETIME ONE Stop: 02/22/17 10:48 Last Admin: 02/22/17 11:11 Dose: 25 mls/hr Piperacillin Sod/Tazobactam (Sod 4.5 gm/ Sodium Chloride) 100 mls @ 33.333 mls/ hr IV Q6H [facility] Piperacillin Sod/Tazobactam (Sod 4.5 gm/ Sodium Chloride) 100 mls @ 200 mls/hr IV ONETIME ONE Stop: 02/22/17 14:29 Last Admin: 02/22/17 18:30 Dose: Not Given Metronidazole 500 mg/ Premix 100 mls @ 100 mls/hr IV Q8H [facility] Last Admin: 02/22/17 13:45 Dose: 100 mls/hr Sodium Chloride (Sodium Chloride 0.45%) 1,000 mls @ 75 mls/hr IV ASDIRECTED [facility] Last Admin: 02/22/17 13:46 Dose: 75 mls/hr Piperacillin Sod/Tazobactam (Sod 4.5 gm/ Sodium Chloride) 100 mls @ 200 mls/hr IV ONETIME ONE Stop: 02/22/17 16:29 Last Admin: 02/22/17 15:38 Dose: 200 mls/hr Piperacillin Sod/Tazobactam (Sod 4.5 gm/ Sodium Chloride) 100 mls @ 33.333 mls/ hr IV Q8H [facility] Iopamidol (Isovue-300 (61%)) 125 ml IVPUSH ONETIME ONE Stop: 02/22/17 16:13 Last Admin: 02/22/17 16:36 Dose: 125 ml Ketorolac Tromethamine (Toradol) 30 mg IVPUSH ONETIME ONE Stop: 02/20/17 21:09 Last Admin: 02/20/17 21:13 Dose: 30 mg Ketorolac Tromethamine (Toradol) 30 mg IVPUSH Q6H [facility] Stop: 02/24/17 03:01 Ketorolac Tromethamine (Toradol) 30 mg IVPUSH Q6H [facility] Stop: 02/22/17 09:01 Last Admin: 02/22/17 12:32 Dose: Not Given Ketorolac Tromethamine (Toradol) 30 mg IVPUSH Q6H PRN PRN Reason: Pain Last Admin: 02/22/17 15:41 Dose: 30 mg Non-Formulary Medication (Cyclosporine) 1 tab PO DAILY [facility] Last Admin: 02/22/17 03:25 Dose: Not Given Restasis 0.05% Eye (DropsOwn Med) 0 each EYEBOTH BID [facility] Last Admin: 02/22/17 08:21 Dose: 1 each Sodium Chloride (Saline Flush) 10 ml FLUSH ASDIRECTED PRN PRN Reason: Keep Vein Open Last Admin: 02/20/17 19:14 Dose: 10 ml Sodium Chloride (Saline Flush) 10 ml FLUSH ONETIME ONE Stop: 02/22/17 16:13 Last Admin: 02/22/17 16:36 Dose: 10 ml [facility] Last Admin: 02/22/17 08:20 Dose: 0.4 mg Temazepam (Restoril) 7.5 mg PO BEDTIME PRN PRN Reason: Insomnia - Exam Quality Assessment: Reports: DVT Prophylaxis General: Reports: Alert, Oriented, Cooperative, Mild Distress HEENT: Reports: Pupils Equal, Pupils Reactive, EOMI Neck: Reports: Supple, Trachea Midline, No JVD Lungs: Reports: Normal Respiratory Effort Cardiovascular: Reports: Regular Rate, Tachycardia GI/Abdominal Exam: Distended, Tender, Abnormal Bowel Sounds (Male) Exam: Deferred Rectal (Males) Exam: Deferred Back Exam: Reports: Normal Inspection Extremities: Normal Inspection, Normal Capillary Refill Skin: Reports: Warm, Dry Neurological: Reports: No New Focal Deficit, Normal Gait, Normal Speech Psy/Mental Status: Reports: Alert, Normal Affect, Normal Mood *Q Meaningful Use (DIS) - VTE *Q VTE Criteria *Q: - Stroke *Q Stroke Criteria *Q: - AMI *Q AMI Criteria *Q:
[2017-02-23] MEDS ORDERED: Piperacillin/Tazobactam 4.5 GM in Sodium Chloride 0.9% 100 ML IV SCH ×2
--- NOTE | 2017-02-23 07:46 | CONS ---
CONSULTING PHYSICIAN: Jona Aguirre MD DATE OF CONSULTATION: 02/22/2017 HISTORY OF PRESENT ILLNESS: A 57-year-old, who has seen by [facility] with abdominal pain. Pain in the abdomen occasionally radiating to genitals, seen by the primary care and given a prescription for BPH prostate, but the pain persisted. CT scan of the abdomen and pelvis was done in the [facility], that did not show any pathology. There is no acute process. The patient's abdominal x-ray is also done at [facility] were unremarkable. The patient is noted this pain the night before and it seemed to be persistent. PAST MEDICAL HISTORY: The patient's past medical history was that of a corneal transplant, but has never had a colonoscopy. SOCIAL HISTORY: He was a former smoker. He used tobacco for 26 years. He uses about 2 to 3 drinks a day. He does not normally see a physician. ALLERGIES: Sulfa. REVIEW OF SYSTEMS: No chest pain, shortness of breath, cough, hoarseness, wheezing, fainting, weakness, numbness, convulsions, nausea, vomiting, indigestion, gas pains. He does have some BPH symptoms. HOSPITAL COURSE: The patient was admitted to the hospital with possible prostatitis, had a high white count of 23,000. The antibiotics were started, he improved, white count came down, but today the symptoms worsened and a repeat CT scan was done showing a transition zone in the ascending colon to hepatic flexure suggesting a cancer of the bowel or an obstruction of the bowel due to inflammation, also there is noted acute diverticulitis. He also had a 9 mm lesion in his lung. The patient did spike a fever, was started on Zosyn and is stable. PHYSICAL EXAMINATION: VITAL SIGNS: The patient with a blood pressure of 131/63, temperature 100.9, 96 sats, 94 pulse. HEENT: Eyes, sclerae white. Extraocular muscle motion normal. Oral cavity, healthy mucous membrane. NECK: Supple. No nodes. No thyromegaly. LUNGS: Some distant breath sounds noted. EXTREMITIES: Upper and lower extremities no angulation deformities. MUSCULOSKELETAL: No sensorineural deficit. No ambulation with assist device. SKIN: Warm and dry. PSYCHIATRIC: Normal. ABDOMEN: Quite firm, but no peritoneal signs. ASSESSMENT: Bowel obstruction, possible colonic and hepatic flexure. Discussed this with the patient, risks, complications and the possible treatments and suggested transfer and the patient has accepted the advice and Dr. Gonzalo Owens has accepted the patient in transfer. MMODAL /[id number]
--- NOTE | 2017-02-23 08:36 | CT ---
CT chest Technique: Multiple axial sections through the chest were obtained. Intravenous contrast was utilized. Comparison: No previous chest CT. Findings: Mild atherosclerotic change seen within the aorta. No aneurysm is seen. Mediastinum and hilar regions show no adenopathy or mass. No axillary adenopathy is seen. No pericardial effusions are seen. Diffuse emphysematous change is present within both lungs. Nodule is identified within the right lung base measuring about 1 cm. Linear densities seen within both posterior lungs felt to represent a combination of atelectasis and scarring. Lungs otherwise are clear. Bone window settings were reviewed which show degenerative spurring within the lower thoracic spine. Impression: 1. 1 cm nodule within the right lung base. Neoplasm is within the differential. PET scan or referral for CT guided biopsy could be considered. Alternatively if follow-up is desired, repeat exam could be considered in 3 months (can be performed without contrast). 2. Increasing atelectasis and scarring within both lung bases from prior abdominal CT of 02/20/17 partially showing the lung bases. 3. Diffuse emphysematous change. Diagnostic code #9 Agree with preliminary report issued by [facility] ([facility] report dictated on 02/22/17, 6:33 PM Central Time) CT abdomen and pelvis Technique: Multiple axial sections were obtained from above the dome of the diaphragm inferiorly through the pubic symphysis. Intravenous contrast was utilized. Oral contrast is also seen within stomach and proximal bowel. Findings: Several small low-density lesions are identified within the liver most likely representing minimal cysts. No additional abnormality identified within the liver. Spleen appears within normal limits. Adrenal glands show no nodule. Kidneys show symmetric contrast enhancement without hydronephrosis or mass. Pancreas is within normal limits. Aorta shows atherosclerotic change which continues into the iliac vessels. No aneurysm is identified. No retroperitoneal adenopathy or mesenteric abnormalities are seen. No pelvic mass or adenopathy is identified. Diffuse small bowel dilatation is seen with dilatation occurring into the terminal ileum and the right side of the colon. Transition point appears to be near the hepatic flexure and findings are of uncertain etiology. There is some bowel wall thickening being seen within ileal loops. This finding is an interval change from previous exam. Mild haziness seen around a portion of the sigmoid colon which is an interval change from prior exam raising the possibility of mild diverticulitis. Bone window settings show scattered degenerative change within the spine. Impression: 1. Diffuse small bowel dilatation occurring into the terminal ileum and right side of the colon. Small bowel wall thickening seen within ileal loops. Transition point appears to be near the hepatic flexure of the colon. Etiology of this finding is not seen. 2. Questionable diverticulitis within the sigmoid colon. 3. Incidental cysts within the liver. Diagnostic code #5 Agree with preliminary report issued by [facility] ([facility] preliminary report dictated on 02/22/17, 6:33 PM Central Time)
== END 2017-02-22 19:15 | DRG 501 ==
LOC: JD.ED 18:07 → JD.MS 21:29 → OBSVTOIN 02-22 12:40
PROVIDERS: ADMIT Internal Medicine Cardiovascular Disease; ATTEND Internal Medicine Cardiovascular Disease
DX: N41.9 Inflammatory disease of prostate, unspecified (principal); K56.60 Unspecified intestinal obstruction; N40.0 Benign prostatic hyperplasia without lower urinary tract symptoms; Z87.891 Personal history of nicotine dependence; Z88.2 Allergy status to sulfonamides; Z79.899 Other long term (current) drug therapy
CPT/HCPCS: 36415; 71260-26; 71270; 74177-26; 74178; 80048; 80053; 80061; 80076; 81001; 82977; 83605; 83690; 83735; 85025; 86140; 86677; 87040; 87046; 87086; 96361; 96365; 96366; 96367; 96372; 96375; 96376; 99284; 99285-25; A9270-GY; G0378; J1170; J1650; J1885; J1956; J2543; J3475; J7030; J7040; J7050; Q9967